=== PATIENT | male | born 1965 | race Hispanic/Latino ===

== ENCOUNTER → 2018-04-05 | Day surgery (SDC) | payer BC ==
[2018-04-04 13:31] LABS: BASOPHILS % 0.5 % (0.0-1.0); EOSINOPHILS # (AUTO) 0.3 (0.0-0.4); EOSINOPHILS % 3.8 % (0.0-6.0); HEMATOCRIT 26.5 % (38.2-49.6); HEMOGLOBIN 8.4 g/dL (14.0-18.0); LYMPHOCYTES % 13.6 % (18.0-39.1); MEAN CORPUSCULAR HEMOGLOBIN 26.2 pg (28-32); MEAN CORPUSCULAR HGB CONC 31.7 g/dL (31-35); MEAN CORPUSCULAR VOLUME 82.6 fL (81-99); MONOCYTES # (AUTO) 0.5 (0.2-0.8); MONOCYTES % 6.3 % (4.4-11.3); NEUTROPHILS # (AUTO) 5.4 (2.1-6.9); NEUTROPHILS % 74.4 % (38.7-80.0); PLATELET COUNT 305 x10e3/uL (140-360); RED BLOOD COUNT 3.21 x10e6/uL (4.3-5.7); RED CELL DISTRIBUTION WIDTH 15.7 % (11.7-14.4)
[2018-04-05] VITALS (10 sets, daily range): BP systolic 132–145; BP diastolic 74–92
[~2018-04-05] MED LIST: CEFAZOLIN SOD 1 GM VIAL ONE; DEXAMETHASONE SOD PHOS INJ 4 MG/ML VIAL ONE; FENTANYL CITRATE/PF 100MCG/2 ML INJ ONE; HYDROCODONE PO; IOPAMIDOL 300MG/ML 50ML INFUS..BTL IV ONE; IOPAMIDOL 610MG/1ML 300 MG/ML VIAL IV ONE; LEVEMIR100 UNIT/1 SQ; LIDOCAINE HCL 2% LOCAL 20 ML VIAL ONE; LIDOCAINE HCL 2% LOCAL INJ 5 ML SDV VIAL INJ ONE; METFORMIN HCL500 MG PO; MIDAZOLAM HCL 2 MG/2 ML VIAL ONE; MS CONTIN30 MG PO; NITROFURANTOIN100 MG; NOVOLOG100 UNIT/1 PO; NOVOLOG100 UNIT/1 SQ; ONDANSETRON HCL 4 MG ORAL DISINTEGRATING TAB ONE; ONDANSETRON HCL INJ 2 MG/ML VIAL ONE; OXYCONTIN10 MG; PROPOFOL IV EMULSION 10 MG/ML 20 ML VIAL ONE; ROBAXIN-750750 MG PO; SEVOFLURANE INHAL SOLN 250 ML PEN BTL ONE; SODIUM CHLORIDE 0.9% 1000ML 1,000 ML ONE; SODIUM CHLORIDE 0.9% 500ML 500 ML ONE
--- OUTSIDE RECORDS SUMMARY | 2018-04-05 07:14 | XMS REPORT ---
Author Author [facility] Address Unknown Phone Unavailable Care Team Providers Care Qc Lab Technician Name Role Phone CAMERON ROCK Unavailable Unavailable Problems This patient has no known problems. Allergies, Adverse Reactions, Alerts This patient has no known allergies or adverse reactions. Medications This patient has no known medications. Results Test Description Test Time Test Comments Text Results Atomic Results Result Comments POCT-CREATININE 2017-04-22 13:14:00 POC-CREATININE (NIKKO) (test [id number]) 1.3 mg/dL 0.6-1.3 TESTED AT [address] [address] POC-EGFR (BEAKER) (test tjni=2900) 58 mL/min/1.73M2
--- OUTSIDE RECORDS SUMMARY | 2018-04-05 07:14 | XMS REPORT | Clinical Summary ---
Author Author [facility] Address Unknown Phone Unavailable Care Team Providers Care Stranding Machine Operator Helper Name Role Phone PCP Unavailable Allergies No Known Allergies Current Medications Prescription Sig. Disp. Refills Start End Date Status Date metFORMIN (GLUCOPHAGE) Take 500 mg by mouth. Active 500 MG tablet lisinopril Take 5 mg by mouth. Active (PRINIVIL,ZESTRIL) 5 MG tablet glipiZIDE (GLUCOTROL) 5 Take 5 mg by mouth. Active MG tablet Hospital, Clinic, or Ordered Dose Route Frequency Start End Date Status Other Facility Date Administered Medication gadopentetate dimeglumine 10 mmol IV ONCE PRN 04/22/20 04/22/20 Ended (MAGNEVIST) injection 10 17 17 mmol Active Problems Problem Noted Date Rectal cancer metastasized to liver (HCC) 08/07/2016 Last Assessment & Plan: He was diagnosed with rectal adenocarcinoma in March 2014. Treatment included XRT, chemotherapy, and sigmoid colon resection. In May 2016 imaging revealed recurrent disease near anastomosis site with liver metastasis and a rectus abdominus wall muscle wall metastasis. He received FOLFOX from May 2016 until [address] scan reveals response with reduction in size of liver lesions and rectus muscle mass. He is scheduled for colon surgery with Dr. Reymundo Sánchez on 08/12/2016. Liver masses 08/07/2016 Last Assessment & Plan: He was diagnosed metastatic colon cancer to the liver. CT scan (03/05/2016) revealed multiple liver masses (4.2 cm, 2.7 cm, and 4.0 cm in posterior right lobe and a 4.4 cm in left liver lobe). He started FOLFOX in May 2016, last dose 2 weeks ago. A repeat CT scan (06/12/2016) revealed a slight decrease in size of liver lesions and no new disease: 4.2 cm peripherally enhancing lesion in liver segment II is stable to slightly decreased in size from prior measurement of 4.5 cm, a 3.5 cm peripherally enhancing lesion in liver segment VII is stable to slightly decreased in size from prior measurement of 3.8 cm. A stable 2.7 cm peripherally enhancing lesion in liver segment IV. Outside imaging will be reviewed at radiology conference next week. We recommend that he proceed with colon resection with Dr. Sánchez, followed by additional chemotherapy with restaging CT scan. Following above, if liver lesions remain stable- hepatic resection of lesions will be considered. Due to extensive nature of upcoming colon surgery combined liver surgery is not recommended. Encounters Date Type Specialty Care Team Description 04/22/2017 Procedure visit Cordelia Armendariz Rectal cancer (HCC) MD Nelly 04/22/2017 Procedure visit Radiology Cordelia Hart Rectal cancer (HCC) MD Nelly 04/20/2017 Outside Orders Radiology Cordelia Hart Rectal cancer (HCC) MD Nelly (Primary Dx) after 04/04/2017 Family History Medical History Relation Name Comments Diabetes Maternal Aunt Relation Name Status Comments Maternal Aunt Other Social History Tobacco Use Types Packs/Day Years Used Date Never Smoker Alcohol Use Drinks/Week oz/Week Comments Yes last drink 2013 Sex Assigned at Date Recorded Not on file Last Filed Vital Signs Not on file Plan of Treatment Health Maintenance Due Date Last Done Comments INFLUENZA VACCINE 08/29/2018 Results * MR pelvis without & with IV contrast (04/22/2017 1:50 PM) Specimen Performing Laboratory GE RIS Impressions : 1. Irregular enhancing mucosal mass involving the distal sigmoid colon and proximal rectum consistent with patient's known neoplasm with associated high-grade malignant stricture. Associated tumor infiltration of the sigmoid mesocolon most focally to the right of the proximal sigmoid colon with suspected involvement of the right ureter. Small 6 mm perisigmoid lymph nodes, suspicious for tumor involvement. 2. Postsurgical changes at the rectosigmoid junction and left lower quadrant ostomy as above. 3. Enhancing lesion in the right sacrum suspicious for metastatic disease or nonspecific degenerative change. 4. Wall thickening of the urinary bladder may represent posttreatment changes or underlying cystitis. Signed: Sivan Baptiste MD Report Verified Date/Time:04/22/2017 15:05:46 Reading Location: [facility] C0X [facility] Consult Reading Room Narrative FINAL REPORT MRI pelvis without and with contrast. INDICATION: rectal ca metastasized to liver COMPARISON: CT from outside imaging facility performed on 06/12/2016 and 04/08/2016 TECHNIQUE: Multiplanar multisequence MRI examination of the pelvis was performed without and with intravenous gadolinium. FINDINGS: Postsurgical changes are seen at the rectosigmoid junction with small foci of susceptibility artifact. There is a left lower quadrant ostomy as well. There is no evidence of mechanical bowel obstruction. Centered at the rectosigmoid junction and extending proximally into the distal sigmoid colon measuring approximately 4.0 cm in length and extending distally into the proximal rectum measuring approximately 4.5 cm in length, therefore approximately 8.5 cm in length in total, there is an irregular enhancing mucosal mass causing high-grade malignant stricture, consistent with patient's known neoplasm. The mass is mostly intraperitoneal in location above the peritoneal reflection with some distal inferior portion outside the peritoneum. There is tumor infiltration in the sigmoid mesocolon most focally to the right of the proximal sigmoid colon measuring approximately 1.8 x 1.2 x 1.2 cm abutting and partially involving the right distal ureter with suspected dilatation of the right ureter. There is a small 6 mm right perisigmoid lymph node, likely tumor involvement as well. The mass does not invade into the adjacent prostate gland. However, the mass appears to abut the seminal vesicles slightly eccentric to the right. There is no involvement of the sphincter complex. There is enhancing lesion in the right sacral ala anteriorly measuring 1.2 cm, suspicious for metastatic disease or nonspecific degenerative change. The urinary bladder demonstrates irregular wall thickening which may represent posttreatment changes or possibly secondary to underlying cystitis and can be correlated with urinalysis. There is no fluid collection or hematoma. The tendons and muscles are intact. Procedure Note Interface, External Ris In - 04/22/2017 3:07 PM CDT FINAL REPORT MRI pelvis without and with contrast. INDICATION: rectal ca metastasized to liver COMPARISON: CT from outside imaging facility performed on 06/12/2016 and 04/08/2016 TECHNIQUE: Multiplanar multisequence MRI examination of the pelvis was performed without and with intravenous gadolinium. FINDINGS: Postsurgical changes are seen at the rectosigmoid junction with small foci of susceptibility artifact. There is a left lower quadrant ostomy as well. There is no evidence of mechanical bowel obstruction. Centered at the rectosigmoid junction and extending proximally into the distal sigmoid colon measuring approximately 4.0 cm in length and extending distally into the proximal rectum measuring approximately 4.5 cm in length, therefore approximately 8.5 cm in length in total, there is an irregular enhancing mucosal mass causing high-grade malignant stricture, consistent with patient's known neoplasm. The mass is mostly intraperitoneal in location above the peritoneal reflection with some distal inferior portion outside the peritoneum. There is tumor infiltration in the sigmoid mesocolon most focally to the right of the proximal sigmoid colon measuring approximately 1.8 x 1.2 x 1.2 cm abutting and partially involving the right distal ureter with suspected dilatation of the right ureter. There is a small 6 mm right perisigmoid lymph node, likely tumor involvement as well. The mass does not invade into the adjacent prostate gland. However, the mass appears to abut the seminal vesicles slightly eccentric to the right. There is no involvement of the sphincter complex. There is enhancing lesion in the right sacral ala anteriorly measuring 1.2 cm, suspicious for metastatic disease or nonspecific degenerative change. The urinary bladder demonstrates irregular wall thickening which may represent posttreatment changes or possibly secondary to underlying cystitis and can be correlated with urinalysis. There is no fluid collection or hematoma. The tendons and muscles are intact. IMPRESSION : 1. Irregular enhancing mucosal mass involving the distal sigmoid colon and proximal rectum consistent with patient's known neoplasm with associated high-grade malignant stricture. Associated tumor infiltration of the sigmoid mesocolon most focally to the right of the proximal sigmoid colon with suspected involvement of the right ureter. Small 6 mm perisigmoid lymph nodes, suspicious for tumor involvement. 2. Postsurgical changes at the rectosigmoid junction and left lower quadrant ostomy as above. 3. Enhancing lesion in the right sacrum suspicious for metastatic disease or nonspecific degenerative change. 4. Wall thickening of the urinary bladder may represent posttreatment changes or underlying cystitis. Signed: Sivan Baptiste MD Report Verified Date/Time: 04/22/2017 15:05:46 Reading Location: [facility] B1 [id number] [facility] Consult Reading Room * POC-Creatinine (04/22/2017 1:08 PM) Component Value Ref Range POC-Creatinine 1.3Comment: TESTED AT [facility]- [address] [place] [address] 0.6 - 1.3 mg/dL [facility] [address] POC-EGFR 58 mL/min/1.73M2 Specimen Performing Laboratory Blood [facility] [address] [address] after 04/04/2017
--- OUTSIDE RECORDS SUMMARY | 2018-04-05 07:14 | XMS REPORT | Clinical Summary ---
Author Author [facility] Address Unknown Phone Unavailable Care Team Providers Care Social Sciences Lecturer Name Role Phone Asked, Pcp PCP Unavailable Allergies No Known Allergies Current Medications Prescription Sig. Disp. Refills Start End Date Status Date metFORMIN (GLUCOPHAGE) Take 500 mg by mouth Active 500 MG tablet daily. glipiZIDE (GLUCOTROL) 5 Take 5 mg by mouth daily. Active MG tablet lisinopril Take 5 mg by mouth daily. Active (PRINIVIL,ZESTRIL) 5 MG tablet citalopram (CeleXA) 20 MG Take 20 mg by mouth Active tablet daily. Active Problems Problem Noted Date Bowel obstruction 09/17/2016 Rectal cancer 08/12/2016 Tumor of rectum 11/29/2015 Family History Medical History Relation Name Comments Lymphoma Father Cancer Maternal Aunt Diabetes Maternal Aunt Cancer Sister Relation Name Status Comments Father Maternal Aunt colon Sister colon Social History Tobacco Use Types Packs/Day Years Used Date Never Smoker Alcohol Use Drinks/Week oz/Week Comments No Sex Assigned at Date Recorded Not on file Last Filed Vital Signs Not on file Plan of Treatment Health Maintenance Due Date Last Done Comments COLONOSCOPY 2014 SHINGRIX VACCINE (#1) 2014 INFLUENZA VACCINE 06/29/2018 Results Not on fileafter 04/04/2017 Insurance Payer Benefit Subscriber ID Type Phone Address Plan / Group BCBS EXCHANGE BLUE xxxxxxxxxxxx Exchange ADVANTAGE HMO EXCH
[2018-04-05 07:32] LABS: BASOPHILS # (AUTO) 0.1 (0.0-0.1); BASOPHILS % 0.6 % (0.0-1.0); EOSINOPHILS # (AUTO) 0.3 (0.0-0.4); EOSINOPHILS % 4.1 % (0.0-6.0); HEMATOCRIT 28.9 % (38.2-49.6); HEMOGLOBIN 8.9 g/dL (14.0-18.0); LYMPHOCYTES # (AUTO) 1.2 (1.0-3.2); MEAN CORPUSCULAR HEMOGLOBIN 26.3 pg (28-32); MEAN CORPUSCULAR HGB CONC 30.8 g/dL (31-35); MEAN CORPUSCULAR VOLUME 85.3 fL (81-99); MONOCYTES # (AUTO) 0.6 (0.2-0.8); MONOCYTES % 7.5 % (4.4-11.3); NEUTROPHILS # (AUTO) 5.6 (2.1-6.9); NEUTROPHILS % 71.3 % (38.7-80.0); PLATELET COUNT 352 x10e3/uL (140-360); RED BLOOD COUNT 3.39 x10e6/uL (4.3-5.7); RED CELL DISTRIBUTION WIDTH 15.7 % (11.7-14.4)
[2018-04-05 08:04] LABS: ANION GAP 12.3 mmol/L (8-16); CALCIUM 9.3 mg/dL (8.4-10.2); CREATININE, SERUM 2.01 mg/dL (0.72-1.25); POTASSIUM 4.3 mmol/L (3.5-5.1)
--- NOTE | 2018-04-05 16:40 | Operative Report ---
DATE OF PROCEDURE: April 05, 2018 SERVICE: Urology. PREOPERATIVE DIAGNOSIS: 1. Bilateral hydronephrosis. 2. Bilateral double J stent. 3. Advanced cancer of the colon. 4. Colostomy. 5. Ureteral obstruction, bilaterally. OPERATION PERFORMED: 1. Cystourethroscopy and removal of left double J stent. 2. Left retrograde pyelograms under fluoroscopic control. 3. Left ureteroscopy. 4. Placement of double J stent, 7-Citizen [place], 26 cm long, to the left side. 5. Partial removal of the left double J stent and replacing it with open-ended catheter. 6. Retrograde of the distal third of the ureter on the right side. 7. Ureteroscopy with attempt to pass a soft wire up into the upper collecting system. It was not successful. ANESTHESIA: General. CLINICAL INDICATION NOTE: A 52-year-old patient that has bilateral hydronephrosis, hydroureter and stents. Patient has obstruction of the ureter by tumor. He does have an advanced colon cancer, has a colostomy as well. Patient was brought for a possible replacement of the stents. Description of the procedure and the potential benefits and complications discussed with the patient and his mother and accepted. DESCRIPTION OF PROCEDURE AND FINDINGS: After a proper level of anesthesia was achieved, the patient was placed in lithotomy position, prepped and draped in sterile fashion. Urethra inspected, is unremarkable. Bladder outlet is minimally obstructed by a small prostate. Double J stent is protruding from both sides. No tumor present in the bladder. The left double J stent was grasped and pulled through the urethral meatus. Attempt to pass a wire through it was not successful. It was blocked. Open-end catheter was inserted by the double J stent and advanced up to the kidney. Retrograde pyelogram demonstrated hydronephrosis, and the upper two-thirds of the ureter are dilated and a narrow area is present beyond that. Guidewire was kept in place. A flexible ureteroscopy was done. The narrow area was identified. It was possible to examine the whole system. No intrinsic lesions except the one described were found. Wire was kept in place, and a 7-[place]izen [place] 26-cm-long double J stent was properly positioned on the left side. This was verified by x-ray and endoscopy. Following this, the right double J stent was pulled minimally out. Attempts to pass a wire through it were not successful. An open-end catheter was inserted by the old double J stent. Injection failed to demonstrate any retrograde beyond the lower third of the ureter, and the area there looks quite irregular. It was not possible to advance any wire up into the collecting system. The wire was left in its position, and a semi-rigid ureteroscopy was done. The distal ureter was quite irregular, and irregular areas were present in just about the lower third of the ureter. It was not possible to negotiate anything up. Therefore, after multiple attempts, the procedure was terminated. Patient was transferred in satisfactory condition to the recovery room. Interventional Radiology will be involved in placement of a percutaneous nephrostomy and hopefully will be able to pass a double J stent from above or a universal stent. Patient and his mother were advised about this. This is needed to maintain the renal function. Job#: [id number] EV
--- NOTE | 2018-04-13 13:23 | Diagnostic Imaging Report ---
Right double-J ureteral stent placement April 05, 2018 Pre-Procedure Diagnosis: Colon cancer with right ureteral obstruction. Post-procedure Diagnosis:Colon cancer with right ureteral obstruction. Indication: The left double-J stent was exchanged during cystogram/retrograde pyelogram by Dr. Puentes earlier in the day. During routine catheter exchange right ureteral access was lost and could not be reestablished from retrograde technique. He requests new double-J ureteral stent placement via antegrade technique. [employer] Police Sergeant: Kristie Sharpe Electrical Tech: None Sedation: Moderate sedation was provided with intravenous fentanyl and Versed. Heart rate, rhythm and oxygen saturation were monitored in real-time by a dedicated interventional radiology nurse under my direct supervision. Blood pressure was monitored in 5 minute increments. 1% lidocaine was used for local anesthesia. Total sedation time: 45 minutes Radiation Dose: 1269.6 cGycm2 (Dose Area Product) Fluoroscopy time: 5.5 minutes Estimate blood loss: <5 mL Blood administered: None Complications: None Implants/Grafts: 8.5-[place]oc[place] 22 cm double-J right ureteral stent Specimen: None Procedure: Informed consent was obtained and the patient placed prone. A timeout was performed. Preliminary ultrasound of the right kidney was performed. The right back was prepped and draped in standard sterile fashion. Using real-time ultrasound guidance a 22-gauge needle was advanced into a right posterior midpole calyx. An image was stored in the electronic medical record. The needle was exchanged for a 5-[place]oc[place] KMP catheter. Nephrostogram was performed (see findings below). Mid and distal right ureteral obstructions were crossed and the catheter advanced to the urinary bladder. Contrast injection confirmed location. The catheter was exchanged for a 8.5-[place]oc[place] double-J ureteral stent. Loops were formed in the urinary bladder and renal pelvis. Contrast injection confirmed appropriate placement. The deployment sheath was subsequently removed and a sterile dressing applied. Findings: Mid and distal segment right ureteral obstruction with resulting moderate hydronephrosis. Impression: Successful placement of an 8.5-[place]oc[place] right double-J ureteral stent. Recommendations/plan: Evaluation of a PET performed in October 2017 demonstrates moderate bilateral hydronephrosis despite the presence of bilateral double-J ureteral stents. This may be seen in the setting of ureteral stent stenosis secondary to a metastatic mass effect. If the patient continues to have hydronephrosis on follow-up imaging, in combination with renal insufficiency, I would consider externalizing the patient to nephrostomies to preserve renal function. This report was generated with voice-recognition technology. Errors in assisted living home director can occur. Please interpret accordingly and contact a radiologist if there are any questions regarding the report. Signed by: Dr. Arnie Sharpe M.D. on 04/13/2018 1:19 PM
--- NOTE | 2018-04-13 13:23 | Diagnostic Imaging Report ---
Right double-J ureteral stent placement April 05, 2018 Pre-Procedure Diagnosis: Colon cancer with right ureteral obstruction. Post-procedure Diagnosis:Colon cancer with right ureteral obstruction. Indication: The left double-J stent was exchanged during cystogram/retrograde pyelogram by Dr. Puentes earlier in the day. During routine catheter exchange right ureteral access was lost and could not be reestablished from retrograde technique. He requests new double-J ureteral stent placement via antegrade technique. Steel Shot Header Operator: Kristie Sharpe Glove Maker: None Sedation: Moderate sedation was provided with intravenous fentanyl and Versed. Heart rate, rhythm and oxygen saturation were monitored in real-time by a dedicated interventional radiology nurse under my direct supervision. Blood pressure was monitored in 5 minute increments. 1% lidocaine was used for local anesthesia. Total sedation time: 45 minutes Radiation Dose: 1269.6 cGycm2 (Dose Area Product) Fluoroscopy time: 5.5 minutes Estimate blood loss: <5 mL Blood administered: None Complications: None Implants/Grafts: 8.5-[place] 22 cm double-J right ureteral stent Specimen: None Procedure: Informed consent was obtained and the patient placed prone. A timeout was performed. Preliminary ultrasound of the right kidney was performed. The right back was prepped and draped in standard sterile fashion. Using real-time ultrasound guidance a 22-gauge needle was advanced into a right posterior midpole calyx. An image was stored in the electronic medical record. The needle was exchanged for a 5-[place] KMP catheter. Nephrostogram was performed (see findings below). Mid and distal right ureteral obstructions were crossed and the catheter advanced to the urinary bladder. Contrast injection confirmed location. The catheter was exchanged for a 8.5-[place] double-J ureteral stent. Loops were formed in the urinary bladder and renal pelvis. Contrast injection confirmed appropriate placement. The deployment sheath was subsequently removed and a sterile dressing applied. Findings: Mid and distal segment right ureteral obstruction with resulting moderate hydronephrosis. Impression: Successful placement of an 8.5-[place] right double-J ureteral stent. Recommendations/plan: Evaluation of a PET performed in October 2017 demonstrates moderate bilateral hydronephrosis despite the presence of bilateral double-J ureteral stents. This may be seen in the setting of ureteral stent stenosis secondary to a metastatic mass effect. If the patient continues to have hydronephrosis on follow-up imaging, in combination with renal insufficiency, I would consider externalizing the patient to nephrostomies to preserve renal function. This report was generated with voice-recognition technology. Errors in diploma medical assistant can occur. Please interpret accordingly and contact a radiologist if there are any questions regarding the report. Signed by: Dr. Arnie Sharpe M.D. on 04/13/2018 1:19 PM
--- NOTE | 2018-04-13 13:23 | Diagnostic Imaging Report ---
Right double-J ureteral stent placement April 05, 2018 Pre-Procedure Diagnosis: Colon cancer with right ureteral obstruction. Post-procedure Diagnosis:Colon cancer with right ureteral obstruction. Indication: The left double-J stent was exchanged during cystogram/retrograde pyelogram by Dr. Puentes earlier in the day. During routine catheter exchange right ureteral access was lost and could not be reestablished from retrograde technique. He requests new double-J ureteral stent placement via antegrade technique. Manager Balance: Kristie Sharpe [employer] Teacher: None Sedation: Moderate sedation was provided with intravenous fentanyl and Versed. Heart rate, rhythm and oxygen saturation were monitored in real-time by a dedicated interventional radiology nurse under my direct supervision. Blood pressure was monitored in 5 minute increments. 1% lidocaine was used for local anesthesia. Total sedation time: 45 minutes Radiation Dose: 1269.6 cGycm2 (Dose Area Product) Fluoroscopy time: 5.5 minutes Estimate blood loss: <5 mL Blood administered: None Complications: None Implants/Grafts: 8.5-Filipino 22 cm double-J right ureteral stent Specimen: None Procedure: Informed consent was obtained and the patient placed prone. A timeout was performed. Preliminary ultrasound of the right kidney was performed. The right back was prepped and draped in standard sterile fashion. Using real-time ultrasound guidance a 22-gauge needle was advanced into a right posterior midpole calyx. An image was stored in the electronic medical record. The needle was exchanged for a 5-Filipino KMP catheter. Nephrostogram was performed (see findings below). Mid and distal right ureteral obstructions were crossed and the catheter advanced to the urinary bladder. Contrast injection confirmed location. The catheter was exchanged for a 8.5-Filipino double-J ureteral stent. Loops were formed in the urinary bladder and renal pelvis. Contrast injection confirmed appropriate placement. The deployment sheath was subsequently removed and a sterile dressing applied. Findings: Mid and distal segment right ureteral obstruction with resulting moderate hydronephrosis. Impression: Successful placement of an 8.5-[place]ino right double-J ureteral stent. Recommendations/plan: Evaluation of a PET performed in October 2017 demonstrates moderate bilateral hydronephrosis despite the presence of bilateral double-J ureteral stents. This may be seen in the setting of ureteral stent stenosis secondary to a metastatic mass effect. If the patient continues to have hydronephrosis on follow-up imaging, in combination with renal insufficiency, I would consider externalizing the patient to nephrostomies to preserve renal function. This report was generated with voice-recognition technology. Errors in pathology secretary/transcriptionist can occur. Please interpret accordingly and contact a radiologist if there are any questions regarding the report. Signed by: Dr. Arnie Sharpe M.D. on 04/13/2018 1:19 PM
== END | disposition home or self-care (01) ==
LOC: OR 07:11
PROVIDERS: ATTEND Urology
DX: N13.1 Hydronephrosis with ureteral stricture, not elsewhere classified (principal); C18.9 Malignant neoplasm of colon, unspecified; Z93.3 Colostomy status; E11.9 Type 2 diabetes mellitus without complications; Z79.4 Long term (current) use of insulin; Z01.810 Encounter for preprocedural cardiovascular examination; Z01.812 Encounter for preprocedural laboratory examination
CPT/HCPCS: 36415; 50694; 52332; 74420; 74470; 76942; 80048; 82948; 85025 ×2; 93005; C2617; C2625; J0690; J1100; J2001 ×2; J2250; J2405; J7030; J7040; Q9967 ×2; 50693; 74425; 77001